=== PATIENT | male | born 1995 | race Caucasian/White ===

== ENCOUNTER 2017-08-25 22:22 | Emergency (ER) | payer BC ==
[2017-08-25] MEDS ORDERED: Acetaminophen TAB* 325 MG PO ONE (23:39)
[2017-08-25] MEDS ORDERED: NS 0.9% 1000 ML*IV.FLUID IV ONE (23:39)
[2017-08-25] MEDS ORDERED: Ketorolac INJ* 30 MG/ML 1 ML VIAL IV PUSH ONE (23:42)
[2017-08-26 00:31] LABS: Hematocrit 46 % (42-52); Hemoglobin 15.9 g/dl (14.0-18.0); Mean Corpuscular HGB Conc 35 g/dl (31-36); Mean Corpuscular Hemoglobin 31 pg (27-31); Mean Corpuscular Volume 90 fL (80-94); Mean Platelet Volume 7 um3 (7.4-10.4); Red Blood Count 5.16 10^6/ul (4.0-5.4); Red Cell Distribution Width 13 % (10.5-15); White Blood Count 12.8 10^3/ul (3.5-10.8)
[2017-08-26 00:45] LABS: Manual Entry Verification ABI0007; Mono Internal Control QC Line Present
[2017-08-26 00:58] LABS: Albumin 4.3 g/dL (3.2-5.2); BUN/Creatinine Ratio 11.7 (8-20); C Reactive Protein 57.13 mg/L (< 5.00); EGFR African American 118.4 (>60); EGFR Non-African American 92.1 (>60); Globulin 2.9 g/dL (2-4); Potassium 3.6 mmol/L (3.5-5.0); Total Bilirubin 0.6 mg/dL (0.2-1.0); Total Protein 7.2 g/dL (6.4-8.9)
[2017-08-26] MEDS ORDERED: Dexamethasone IV* 4 MG/ML 1 ML (4 MG) IV SLOW PU ONE (01:12)
--- NOTE | 2017-08-26 01:35 | ED ---
Alberto Partida Thomas, scribed for Leo Johnson MD on 08/25/17 at 2341 . HPI Febrile Illness - HPI Summary HPI Summary: The pt is a 21 y/o M presenting to the ED c/o intermittent fever since two days ago. He also had a fever eight days ago. The patients temperature has been 104.0 and 103.5 at home. The patient has treated the pain with ibuprofen 600mg earlier today. He was given Azithromycin earlier today. Pt additionally c/o chills, myalgia, cough, vomiting, sore throat, headache, nasal congestion, and dysuria (onset one week ago). Pt denies penile discharge and diarrhea. The patient has a recent new sexual contact as of two weeks ago. - History of Current Complaint Chief Complaint: EDFever Time Seen by Provider: 08/25/17 23:27 Hx Obtained From: Patient Onset/Duration: Started Days Ago - 2, Still Present Timing: Intermittent Temperature: 104 F - at home Current Severity: Moderate Pain Intensity: 3 Pain Scale Used: 0-10 Numeric Aggravating Factors: Nothing Alleviating Factors: Nothing Associated Signs and Symptoms: Other: - Chills, myalgia, cough, vomiting, sore throat, headache, nasal congestion, and dysuria (onset one week ago); NEGATIVE: penile discharge and diarrhea - Allergy/Home Medications Allergies/Adverse Reactions: Allergies Allergy/AdvReac Type Severity Reaction Status Date / Time No Known Allergies Allergy Verified 08/25/17 22:28 PMH/Surg Hx/FS Hx/Imm Hx Previously Healthy: Yes Endocrine/Hematology History: Denies: Hx Diabetes Cardiovascular History: Denies: Hx Hypertension Respiratory History: Denies: Hx Asthma - Surgical History Surgery Procedure, Year, and Place: None. Infectious Disease History: No Infectious Disease History: Denies: Traveled Outside the [place] in Last 30 Days - Family History Known Family History: Positive: Other - Osteoarthritis - Social History Occupation: Student Alcohol Use: Weekly Hx Tobacco Use: No Smoking Status (MU): Never Smoked Tobacco Review of Systems Positive: Fever, Chills Positive: Sore Throat, Other - Nasal congestion Positive: Cough Positive: Vomiting. Negative: Diarrhea Positive: dysuria. Negative: discharge Positive: Myalgia Positive: Headache All Other Systems Reviewed And Are Negative: Yes Physical Exam - Summary Physical Exam Summary: VITAL SIGNS: Reviewed. GENERAL: Patient is a well-developed and nourished male who is lying comfortable in the stretcher. Patient is not in any acute respiratory distress. HEAD AND FACE: No signs of trauma. No ecchymosis, hematomas or skull depressions. No sinus tenderness. EYES: PERRLA, EOMI x 2, No injected conjunctiva, no nystagmus. EARS: Hearing grossly intact. Ear canals and tympanic membranes are within normal limits. MOUTH: Oropharynx within normal limits. There is postnasal drip in the posterior pharynx. NECK: Supple, trachea is midline, no adenopathy, no JVD, no carotid bruit, no c- spine tenderness, neck with full ROM. CHEST: Symmetric, no tenderness at palpation LUNGS: Clear to auscultation bilaterally. No wheezing or crackles. CVS: Regular rate and rhythm, S1 and S2 present, no murmurs or gallops appreciated. ABDOMEN: Soft, non-tender. No signs of distention. No rebound no guarding, and no masses palpated. Bowel sounds are normal. EXTREMITIES: FROM in all major joints, no edema, no cyanosis or clubbing. NEURO: Alert and oriented x 3. No acute neurological deficits. Speech is normal and follows commands. SKIN: Dry and warm Triage Information Reviewed: Yes Vital Signs On Initial Exam: Initial Vitals Temp Pulse Resp BP Pulse Ox 98.3 F 112 20 132/70 97 08/25/17 22:25 08/25/17 22:25 08/25/17 22:25 08/25/17 22:25 08/25/17 22:25 Vital Signs Reviewed: Yes Diagnostics - Vital Signs Vital Signs Temp Pulse Resp BP Pulse Ox 08/25/17 22:25 98.3 F 112 20 132/70 97 - Laboratory Result Diagrams: 08/25/17 00:12 08/25/17 00:12 Lab Statement: Any lab studies that have been ordered have been reviewed, and results considered in the medical decision making process. - Radiology CXR Xray Interpretation: No Acute Changes - Negative for acute changes. Radiology Interpretation Completed By: ED Physician Course/Dx - Course Assessment/Plan: The pt is a 21 y/o M presenting to the ED c/o intermittent fever since two days ago. He also had a fever eight days ago. The patients temperature has been 104.0 and 103.5 at home. The patient has treated the pain with ibuprofen 600mg earlier today. He was given Azithromycin earlier today. Pt additionally c/o chills, myalgia, cough, vomiting, sore throat, headache, nasal congestion, and dysuria (onset one week ago). Pt denies penile discharge and diarrhea. In the ED course the patient was given Acetaminophen, Dexamethasone, Toradol, and IV fluids. Bloodwork was obtained. CXR was negative for disease. The patient is diagnosed with mononucleosis. The patient is instructed to follow up with primary care. The patient is prescribed ibuprofen. He was given instructions to take ibuprofen, increase fluid intake, abstain from sports, and bed rest as much as possible. He was given a school note. Patient is agreeable with this plan. - Diagnoses Provider Diagnoses: Infectious mononucleosis Discharge - Discharge Plan Condition: Stable Disposition: HOME Prescriptions: Ibuprofen TAB* [Motrin TAB* 600 MG] 600 mg PO Q6H PRN #30 tab PRN Reason: Fever/Headache Patient Education Materials: Ibuprofen (By mouth), Mononucleosis (ED) Forms: *School Release Referrals: [facility] - Taye BRUNSON [Primary Care Provider] - 3 Days Additional Instructions: Follow up at [facility] in three days. 1) Take Motrin for the pain and fever. 2) Increase your oral fluids. 3) Do not play any sports for three weeks. 4) Have home rest as much as possible until symptoms subside. The documentation as recorded by the Alberto bryant Thomas accurately reflects the service I personally performed and the decisions made by me, Leo Johnson MD.
[2017-08-26 01:50] LABS: Urine Bacteria Absent (Absent); Urine Bilirubin Negative (Negative); Urine Glucose Negative (Negative); Urine Nitrite Negative (Negative)
[2017-08-26 01:55] VITALS: BP 110/61
--- NOTE | 2017-08-26 08:15 | RAD ---
Indication: Fever. Headache, confusion. Comparison: August 02, 2016 Technique: Upright AP 2355 hours Report: Elevated lung volumes. No focal pulmonary lesion, compelling alveolar consolidation, pleural effusion, pneumothorax. The heart, pulmonary vasculature, and mediastinal contours are unremarkable. IMPRESSION: No evidence for pneumonia. Elevated lung volumes may reflect obstructive lung disease or simply exuberant inspiratory effort for examination.
== END 2017-08-26 01:47 | disposition home or self-care (01) ==
LOC: ED 22:22
DX: B27.90 Infectious mononucleosis, unspecified without complication (principal)
CPT/HCPCS: 36415; 71010; 80053; 81003; 81015; 83605; 85025; 86140; 86308; 87040; 87502; 87651; 96360; 96374; 96375; 99283; A9270-GY; J1100; J1885